=== PATIENT | female | born 1975 | race Caucasian/White ===

== ENCOUNTER → 2023-07-11 15:59 | Outpatient (REF) | payer BC, SELFPAY | LOC: HWRCS 15:59 | PROVIDERS: ATTENDING PHYSICIAN Internal Medicine Cardiovascular Disease; FAMILY PHYSICIAN Nurse Practitioner Primary Care | DX: I35.1 Nonrheumatic aortic (valve) insufficiency (principal) | CPT/HCPCS: 93306 ==

== ENCOUNTER → 2023-09-12 14:15 | Outpatient (REF) | payer BC, SELFPAY | LOC: WDC 14:15 | PROVIDERS: ATTENDING PHYSICIAN Obstetrics & Gynecology Gynecology; FAMILY PHYSICIAN Nurse Practitioner Primary Care | DX: Z12.31 Encounter for screening mammogram for malignant neoplasm of breast (principal) | CPT/HCPCS: 77063; 77067 ==

== ENCOUNTER → 2023-09-19 09:29 | Outpatient (REF) | payer BC, SELFPAY | LOC: WDC 09:29 | PROVIDERS: ATTENDING PHYSICIAN Obstetrics & Gynecology Gynecology; FAMILY PHYSICIAN Nurse Practitioner Primary Care | DX: R92.8 Other abnormal and inconclusive findings on diagnostic imaging of breast (principal) | CPT/HCPCS: 76642 ==

== ENCOUNTER 2024-02-12 13:27 | Emergency (ER) | payer BC, SELFPAY ==
[2024-02-12 13:35] VITALS: BP 134/80
--- NOTE | 2024-02-12 13:44 | ED.GENMED ---
ED Provider Triage
<Anali Thomson PA-C - Last Filed: 02/12/24 13:57>
-
Patient seen by provider in Triage?: Seen in Triage
48 y/o F with h/o type A aortic dissection s/p repair in 2008
she has had some ongoing R groin pain and had MRI rcently showing some sort of cyst in her colon
she is here because since lat night she has had pain in her right upper abd/ raditing to shoulder and back and feels the pain with deep breathing
took tums and pepcid
she was recently told she had elevated bilirubin (1.3)
no distress
pain with deep breathing
not hhpoxic
could be GB pathology but givn her AORIC ANEURYSM, will do CTA
d/w dr. carter
A medical screening examination has been initiated by a qualified medical provider. Based on the assessment performed at this time, it has been determined that an emergent medical condition may exist and the patient has been informed that further
medical evaluation and possible additional diagnostic testing may be needed.
HPI: This is a medical evaluation conducted in person to initiate diagnostic evaluation and provide initial therapeutics. Please see further documentation by the treating clinician.
GENERAL: Alert , in no apparent distress
ENT: No visible abnormalities
LUNGS: No acute respiratory distress
painful breathing
present breath sounds
NEUROLOGICAL: Alert and oriented
SKIN: Skin intact. No visible changes.
MUSCULOSKELETAL: Moving extremities normally
PSYCH: Normal and appropriate interaction.
History of Present Illness
<Anali Thomson PA-C - Last Filed: 02/12/24 13:57>
General
Chief Complaint: Chest Pain
Time Seen by Provider: 02/12/24 16:39
<Kapil Araujo Jr., PA-C - Last Filed: 02/12/24 20:28>
General
Source: patient
Exam Limitations: none
Nursing documentation reviewed up to this point in time: agreed with
History of Present Illness
History of Present Illness:
48-year-old female past medical history of chronic aortic type a dissection presenting to the emergency department today with concerns of multiple symptoms. Has had some chest pain rating to the right shoulder some lightheadedness some random
shortness of breath that has been intermittent also has had some ongoing groin pain. Denies any follow-up for her CT surgery does follow-up with vascular. Denies any numbness weakness.
Past History
<Anali Thomson PA-C - Last Filed: 02/12/24 13:57>
Past History
ED Past Medical History: Psychiatric (Takes Wellbutrin, Zoloft and PRN Klonopin) and Other (Marfan's)
ED Past Surgical History: Cardiac (repair of aortic aneurysm)
Social History
Tobacco: Non-smoker
Alcohol: None
Personal:
Living: with family
Employment: Disabled
Review of Systems
<Kapil Araujo Jr., PA-C - Last Filed: 02/12/24 20:28>
Review of Systems
Allergies reviewed?: Yes
All Other Systems: ROS reviewed and negative except as documented in HPI and ROS
Phy Exam
<Kapil Araujo Jr., PA-C - Last Filed: 02/12/24 20:28>
Physical Exam
Physical Exam:
GENERAL: Alert , in no apparent distress
EYE: pupils equal and reactive
NECK: Supple, no significant adenopathy.
ENT: o/p clr, mmm.
CARDIAC: Regular rate and rhythm .
LUNGS: Clear breath sounds bilaterally, no acute respiratory distress, no wheezes/rales/rhonchi
ABDOMEN: Soft, without focal tenderness, no r/g, no cvat
NEUROLOGICAL: Alert and oriented, no focal neuro deficits
SKIN: Warm and dry, skin intact.
MUSCULOSKELETAL: No edema, well perfused.
PSYCH: Normal and appropriate interaction.
Scores
<Kapil Araujo Jr., PA-C - Last Filed: 02/12/24 20:28>
Heart Score for Chest Pain Patients
STEMI patient?: No
History: Slightly or Non-Suspicious
ECG: Nonspecific Repolarization
Age: >45 - <65 years
Risk Factors: 1 or 2 Risk Factors
Troponin: </= Normal Limit
Heart Score for Chest Pain Patients: 3
Heart Score Risk: 2.5% MACE over next 6 weeks
Course
<Anali Thomson PA-C - Last Filed: 02/12/24 13:57>
Orders/Labs/Results
Orders:
Orders
02/12/24 13:28
ECG [Electrocardiogram (*1)] Urgent
Reason for Study: Chest Pain
EKG- Treatment ONCE
02/12/24 13:50
CT Chest/abd/pelvis Angio W/wo Urgent
Comment:
Reason For Exam: h/o stable type A dissec; graft; r cp to back
02/12/24 14:03
Complete Blood Count/With Diff Urgent
Comprehensive Metabolic Panel Urgent
Lipase Urgent
Troponin I Urgent
Urinalysis Reflex To Culture Urgent
Date Specimen was Collected: 02/12/24
Time Specimen was Collected: 13:50
02/12/24 18:29
Acetaminophen [Tylenol] 1,000 mg .ROUTE .STK-MED ONE
Acetaminophen [Tylenol] 1,000 mg PO NOW STA
Abnormal Lab Results
02/12/24
14:03
Absolute Neuts (auto) 6.9 H 10^3/uL
(1.4-6.5)
Absolute Monos (auto) 0.8 H 10^3/uL
(0.1-0.6)
Chloride 97 L mmol/L
(98-107)
Creatinine 0.5 L mg/dL
(0.6-1.0)
Glucose 102 H mg/dl
(70-99)
ALT 36 H U/L
(0-35)
02/12/24 14:03
02/12/24 14:03
Vital Signs
Initial and Last Documented VS:
Initial Vital Signs
Temp Pulse Resp BP Pulse Ox
98.9 F 81 22 134/80 96
02/12/24 13:35 02/12/24 13:35 02/12/24 13:35 02/12/24 13:35 02/12/24 13:35
Last Documented Vital Signs
Temp Pulse Resp BP Pulse Ox
98.9 F 73 18 139/66 72
02/12/24 13:35 02/12/24 19:15 02/12/24 19:15 02/12/24 18:00 02/12/24 19:15
<Kapil Araujo Jr., PA-C - Last Filed: 02/12/24 20:28>
Orders/Labs/Results
Orders:
Orders
02/12/24 13:28
ECG [Electrocardiogram (*1)] Urgent
Reason for Study: Chest Pain
EKG- Treatment ONCE
02/12/24 13:50
CT Chest/abd/pelvis Angio W/wo Urgent
Comment:
Reason For Exam: h/o stable type A dissec; graft; r cp to back
02/12/24 14:03
Complete Blood Count/With Diff Urgent
Comprehensive Metabolic Panel Urgent
Lipase Urgent
Troponin I Urgent
Urinalysis Reflex To Culture Urgent
Date Specimen was Collected: 02/12/24
Time Specimen was Collected: 13:50
02/12/24 18:29
Acetaminophen [Tylenol] 1,000 mg .ROUTE .STK-MED ONE
Acetaminophen [Tylenol] 1,000 mg PO NOW STA
Abnormal Lab Results
02/12/24
14:03
Absolute Neuts (auto) 6.9 H 10^3/uL
(1.4-6.5)
Absolute Monos (auto) 0.8 H 10^3/uL
(0.1-0.6)
Chloride 97 L mmol/L
(98-107)
Creatinine 0.5 L mg/dL
(0.6-1.0)
Glucose 102 H mg/dl
(70-99)
ALT 36 H U/L
(0-35)
02/12/24 14:03
02/12/24 14:03
Vital Signs
Initial and Last Documented VS:
Initial Vital Signs
Temp Pulse Resp BP Pulse Ox
98.9 F 81 22 134/80 96
02/12/24 13:35 02/12/24 13:35 02/12/24 13:35 02/12/24 13:35 02/12/24 13:35
Last Documented Vital Signs
Temp Pulse Resp BP Pulse Ox
98.9 F 73 18 139/66 72
02/12/24 13:35 02/12/24 19:15 02/12/24 19:15 02/12/24 18:00 02/12/24 19:15
<Kapil Araujo Jr., PA-C - Last Filed: 02/12/24 20:28>
MDM/Problems Addressed
MDM/Problems Addressed:
48-year-old female presenting to the emergency department today with multiple areas of discomfort. Here vital signs are normal labs unremarkable no significant elevation with her bilirubin which previously was reported to be elevated. There were
normal troponin EKG nonischemic the patient had a CT angiogram due to history of aortic pathology. This was unchanged here. Case was discussed with vascular surgery and patient was also seen by our CT surgeon that feels there is no emergent
surgical need and she will follow-up closely as an outpatient otherwise stable for discharge return precautions given.
<Kapil Araujo Jr., PA-C - Last Filed: 02/12/24 20:28>
*Critical Care Note
Total Time (30-74mins, 75-104mins- exclusive of procedures): Not Applicable
ED Attending Note
<Anali Thomson PA-C - Last Filed: 02/12/24 13:57>
-
Portions of this chart may have been created with voice recognition software.� Occasional wrong word or��sound alike� substitutions may have occurred due to the inherent limitations of voice recognition software.
Discharge Plan
Departure
Patient Disposition: Home (Routine Discharge)
Date of Disposition: 02/12/24
Time of Disposition: 20:25
Patient with high blood pressure during this ER visit?: No
Condition: Good
Covid-19: Not Applicable
Discharge Problem:
Chest pain
Instructions: Chest Pain PCP Follow Up
Prescriptions:
No Action
clonazepam 0.5 MG tablet
0.5 mg PO PRN PRN (Reason: anxiety)
clopidogrel 75 MG tablet
75 mg PO DAILY
bupropion HCl 100 MG tablet
100 mg PO DAILY
sertraline 50 MG tablet
50 mg PO DAILY
atenolol 50 MG tablet
75 mg PO DAILY
methylprednisolone [Medrol (Ron)] 4 mg tablets,dose pack
4 mg PO DAILY Qty: 21 0RF
ondansetron 4 mg tablet,disintegrating
4 mg PO TIDPRN PRN (Reason: nausea/vomiting) Qty: 10 0RF
Referrals:
Danielle Simpson CRNP [Family Provider] -
Activity Restrictions/Additional Instructions:
You came to the emergency department today with concerns of discomfort of her chest additional symptoms. Here you had a extensive workup without emergent findings. Please follow closely with the cardiothoracic surgeon. They were given your
information and will contact you for follow-up. Return to the emergency department any worsening, new or concerning symptoms.
Interventions
Interventions:
*Risk Screen - Suicide Last Done: 02/12/24 13:35
*General Assessment Last Done: 02/12/24 13:35
*Neglect/Abuse Screening Last Done: 02/12/24 13:35
ED- Cardiac Assessment Last Done: 02/12/24 18:30
Discharge Date and Time
Print Language: MAURITANIAN
[2024-02-12 14:19] LABS: % Basophils 0.6 % (0-2); % Eosinophils 1.2 % (0-6); % Immature Granulocytes 0.3 % (0-0.5); % Lymphocytes 23.8 % (20.5-51.1); % Monocytes 7.8 % (1.7-9.3); % Neutrophils 66.3 % (42.2-75.2); Absolute Basophils 0.1 10^3/uL (0-0.2); Absolute Eosinophils 0.1 10^3/uL (0-0.7); Absolute Lymphocytes 2.5 10^3/uL (1.2-3.4); Absolute Monocytes 0.8 10^3/uL (0.1-0.6); Absolute Neutrophils 6.9 10^3/uL (1.4-6.5); Hemoglobin 14.7 g/dL (12.0-16.0); Mean Corp Hgb Conc. 34.2 g/dL (33.0-37.0); Mean Corpuscular Hgb 29.9 pg (27.0-31.0); Mean Corpuscular Volume 87.6 fL (81.0-99.0); Nucleated Red Blood Cells % 0 %; Platelet Count 277 10^3/uL (130-400); Red Blood Cell Count 4.91 10^6/uL (4.20-5.40); Red Cell Dist. Width 12.1 % (11.5-14.5); White Blood Cell Count 10.4 10^3/uL (4.8-10.8)
[2024-02-12 14:22] LABS: Urine Albumin Negative (Neg - Trace); Urine Bilirubin Negative (Negative); Urine Character Clear (Clear); Urine Color Yellow; Urine Glucose Negative (Negative); Urine Ketone Negative (Negative); Urine Leukocyte Negative (Negative); Urine Nitrite Negative (Negative); Urine Occult Blood Negative (Negative); Urine Specific Gravity 1.005 (<1.030); Urine Urobilinogen Negative (Neg - 1+)
[2024-02-12 14:31] LABS: ALT (SGPT) 36 U/L (0-35); AST (SGOT) 33 U/L (14-36); Albumin 4.7 g/dl (3.5-5.0); Alkaline Phosphatase 82 U/L (38-126); Blood Urea Nitrogen 12 mg/dl (7-17); Calcium 10.1 mg/dl (8.4-10.2); Carbon Dioxide 30 mmol/L (22-30); Chloride 97 mmol/L (98-107); Glucose 102 mg/dl (70-99); Lipase 85 U/L (23-300); Potassium 3.8 mmol/L (3.5-5.1); Sodium 138 mmol/L (135-145); Total Bilirubin 0.9 mg/dl (0.2-1.3); Total Protein 7.3 g/dl (6.3-8.2); eGFR > 60.00
[2024-02-12 14:41] LABS: Troponin I < 0.012 ng/ml
[2024-02-12 16:35] VITALS: BP 146/70
[2024-02-12 17:00] VITALS: BP 150/70
[2024-02-12 18:00] VITALS: BP 139/66
[2024-02-12] MEDS: TYLENOL 1000 MG PO (18:30)
--- NOTE | 2024-02-12 19:48 | W.PN.UPDATE ---
Update Note
Progress Note Update
CARDIAC SURGERY ATTENDING:
It was my pleasure to evaluate Mrs. Elzbieta Oquendo in the ED this evening. She is a very pleasant 48-year-old woman with a complex aortic pathology stemming from her Marfan's disease. She had an aortic dissection in 2008 that was managed at [facility]. This dissection occurred during her . I do not have that operative report available for review, but on review of her CT imaging it appears that she had a tube graft replacement of her ascending aorta with no
intervention on her aortic root or arch. 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
abdominal aorta and viscera. Her aortic root is also dilated to approximately 4.5 cm. There is no thrombus in either of the true or false lumens. The celiac axis, SMA, GUERA, and left renal artery arise from the false lumen with the right renal
artery arising from the true lumen. She had a prior CTA of her chest abdomen pelvis performed on 05/29/2022 and I agree with my radiology colleagues, that there was no significant change in appearance or size measurements from that prior scan. The
scan also demonstrated no acute pathology in her chest/abdomen/pelvis. Laboratory assessments in the ED including CTNI were unremarkable. Her EKG was also nonischemic. She had a recent echocardiogram on 07/11/2023 that demonstrated normal left
ventricular size and function with an LVEF of 55 to 60%, mild tricuspid regurgitation (PASP 20 to 25 mmHg) and a dilated sinus of Valsalva measured at 4.0 cm on echocardiographic assessment there was no significant aortic stenosis or aortic
insufficiency. There is been no change in her echocardiographic study since her prior from 2018.
Given her Marfan's diagnosis and the complex nature of her aortic pathology, I believe it is very prudent to have this patient establish local follow-up with a aortic surgeon at a tertiary center. I have reached out to my colleague, Dr. Sandoval
Otoniel, who graciously agreed to meet with this patient. I provided him with her name and contact information.
Thank you for the opportunity to participate in the care of this patient.
The patient would ideally like to go home as her symptoms are not severe. I have no objection.
Please call with any questions or concerns.
Rob Griffith MD
[phone]
== END 2024-02-12 20:46 | disposition home or self-care (01) ==
LOC: EMR 13:27
PROVIDERS: Physician Assistant; EMERGENCY PHYSICIAN Student in an Organized Health Care Education/Training Program; FAMILY PHYSICIAN Nurse Practitioner Primary Care
DX: R07.9 Chest pain, unspecified (principal); R10.30 Lower abdominal pain, unspecified; Z86.79 Personal history of other diseases of the circulatory system
CPT/HCPCS: 99284; 71275; 74174; 80053; 81003; 83690; 84484; 85025; 93005; Q9967

== ENCOUNTER → 2024-04-06 15:27 | Outpatient (REF) | payer BC, SELFPAY | LOC: RAD 15:27 | PROVIDERS: ATTENDING PHYSICIAN Obstetrics & Gynecology Gynecology; FAMILY PHYSICIAN Nurse Practitioner Primary Care | DX: N93.9 Abnormal uterine and vaginal bleeding, unspecified (principal) | CPT/HCPCS: 76830; 76856 ==

== ENCOUNTER → 2024-09-14 13:38 | Outpatient (REF) | payer BC, SELFPAY | LOC: WDC 13:38 | PROVIDERS: ATTENDING PHYSICIAN Obstetrics & Gynecology Gynecology; FAMILY PHYSICIAN Nurse Practitioner Primary Care | DX: Z12.31 Encounter for screening mammogram for malignant neoplasm of breast (principal) | CPT/HCPCS: 77063; 77067 ==

== ENCOUNTER → 2024-10-30 08:09 | Outpatient (REF) | payer BC, SELFPAY | LOC: WDC 08:09 | PROVIDERS: ATTENDING PHYSICIAN Nurse Practitioner Primary Care | DX: N63.23 Unspecified lump in the left breast, lower outer quadrant (principal) | CPT/HCPCS: 76642 ==

== ENCOUNTER → 2024-12-09 08:20 | Outpatient (REF) | payer BC, SELFPAY | LOC: RAD 08:20 | PROVIDERS: ATTENDING PHYSICIAN Nurse Practitioner Family; FAMILY PHYSICIAN Nurse Practitioner Primary Care | DX: R10.31 Right lower quadrant pain (principal); N89.8 Other specified noninflammatory disorders of vagina | CPT/HCPCS: 76830; 76856 ==

== ENCOUNTER → 2025-01-06 09:20 | Outpatient (REF) | payer BC, SELFPAY | LOC: RAD 09:20 | PROVIDERS: ATTENDING PHYSICIAN Surgery Vascular Surgery; FAMILY PHYSICIAN Nurse Practitioner Primary Care; REFERRING PHYSICIAN Internal Medicine Cardiovascular Disease | DX: I71.019 Dissection of thoracic aorta, unspecified (principal) | CPT/HCPCS: 71275; 74174; 93880; Q9967 ==